=== PATIENT | male | born 1950 | race African-American/Black ===

== ENCOUNTER 2025-04-20 21:02 | Emergency (ER) | payer MEDICARE, OTHER ==
[2025-04-20] MEDS ORDERED: Ketorolac Tromethamine 30 MG (1 mL) VIAL ONE (21:36)
== END 2025-04-21 02:06 | disposition home or self-care (01) ==
LOC: ERS 21:02
DX: S32.010A Wedge compression fracture of first lumbar vertebra, initial encounter for closed fracture (principal); I10 Essential (primary) hypertension; E11.9 Type 2 diabetes mellitus without complications; X50.0XXA Overexertion from strenuous movement or load, initial encounter
CPT/HCPCS: 72131; 96372; 99284; J1885; J3010